=== PATIENT | male | born 1985 | race Two or more races ===

== ENCOUNTER 2018-05-16 07:39 | Emergency (ER) | payer MEDICAID, OTHER ==
[~2018-05-16] VITALS: Ht 175.3 cm; Wt 87.3 kg
[2018-05-16 07:42] VITALS: BP 141/101
[2018-05-16] MEDS ORDERED: FLUORESCEIN OPHTHALMIC 1 MG STRIP EACHEYE ONE (08:00)
[2018-05-16] MEDS ORDERED: DEXAMETHASONE 4 MG TABLET ONE (08:11)
[2018-05-16] MEDS ORDERED: TETRACAINE/PF OPHTH 0.5%, 4ML OP ONE (09:00)
[2018-05-16] MEDS ORDERED: FLUORESCEIN/BENOXINATE 5 ML DROPS OP ONE (09:00)
[2018-05-16] MEDS ORDERED: DEXAMETHASONE 4 MG TABLET PO ONE (09:00)
[2018-05-16] MEDS ORDERED: PROPARACAINE OPHTH 0.5%, 15ML EACHEYE ONE (09:00)
== END 2018-05-16 09:05 | disposition home or self-care (01) ==
LOC: ED 08:59
DX: J02.9 Acute pharyngitis, unspecified (principal); H10.023 Other mucopurulent conjunctivitis, bilateral; R11.10 Vomiting, unspecified
CPT/HCPCS: 87081; 87880; 99283